=== PATIENT | female | born 1955 | race African-American/Black ===

== ENCOUNTER 2018-04-22 09:31 | Emergency (ER) | payer MEDICARE, MEDICAID ==
[~2018-04-22] VITALS: Ht 165.1 cm; Wt 100.0 kg
[~2018-04-22 09:31] MED LIST: ALBU18HF2; UNK MEDS
[2018-04-22 21:47] LABS: EOSINOPHILS % 2.6 % (0.0-5.0); HEMATOCRIT. 39.8 % (36.0-48.0); HEMOGLOBIN. 12.9 g/dL (12.0-16.0); MEAN CORPUSCULAR HEMOGLOBIN 27.4 pg (28.0-32.0); MEAN CORPUSCULAR VOLUME 84.6 fL (81.0-99.0); MEAN PLATELET VOLUME 8.9 fl (7.4-10.4); MONOCYTES % 8.8 % (2.0-8.0); NEUTROPHILS % 45.6 % (40.0-76.0); PLATELET 245 x1000/uL (130-400); RED CELL DISTRIBUTION WIDTH 14.9 % (11.6-14.6)
[2018-04-22 22:07] LABS: CLARITY URINE CLEAR (CLEAR); COLOR URINE YELLOW (YELLOW); KETONES URINE TRACE (NEGATIVE); LEUKOCYTE ESTERASE URINE NEGATIVE (NEGATIVE); NITRITE URINE NEGATIVE (NEGATIVE); OCCULT BLOOD URINE TRACE (NEGATIVE); PH URINE 5.5 (4.5-8.0); PROTEIN URINE TRACE (NEGATIVE); SPECIFIC GRAVITY URINE 1.028 (1.005-1.030)
[2018-04-22 23:44] LABS: CHLORIDE 108 mEq/L (98-107)
[2018-04-23] MEDS ORDERED: CEFTRIAXONE 1 G PREMIX 50 ML IV SCH (00:44)
[2018-04-23] MEDS ORDERED: KETOROLAC 30MG/ML VIAL IV SCH (00:45)
[2018-04-23 02:03] VITALS: BP 125/62
== END 2018-04-23 02:18 | disposition home or self-care (01) ==
LOC: ER 10:34
DX: N20.0 Calculus of kidney (principal); K80.20 Calculus of gallbladder without cholecystitis without obstruction; I11.0 Hypertensive heart disease with heart failure; I50.9 Heart failure, unspecified; Z86.73 Personal history of transient ischemic attack (TIA), and cerebral infarction without residual deficits; Z98.51 Tubal ligation status; Z96.659 Presence of unspecified artificial knee joint; Z98.890 Other specified postprocedural states; Z88.5 Allergy status to narcotic agent
CPT/HCPCS: 36415; 71045; 74176; 76705; 80053; 81003; 83605; 83690; 83880; 84484; 85025; 93005; 96365; 96375; 99284; J0696; J1885

== ENCOUNTER 2020-12-20 16:27 | Emergency (ER) | payer MEDICARE, MEDICAID ==
[~2020-12-20] VITALS: Ht 157.5 cm; Wt 98.0 kg
[2020-12-20 21:36] LABS: BASOPHILS % 1.1 % (0.0-2.0); CHLORIDE 110 mEq/L (98-107); EOSINOPHILS % 5.1 % (0.0-5.0); HEMATOCRIT. 37.6 % (36.0-48.0); HEMOGLOBIN. 12.4 g/dL (12.0-16.0); LYMPHOCYTES % 52.8 % (20.0-50.0); MEAN CORPUSCULAR HEMOGLOBIN 27.8 pg (28.0-32.0); MEAN CORPUSCULAR VOLUME 84.6 fL (81.0-99.0); MEAN PLATELET VOLUME 8.4 fl (7.4-10.4); MONOCYTES % 7.9 % (2.0-8.0); NEUTROPHILS % 33.1 % (40.0-76.0); PLATELET 259 x1000/uL (130-400); RED BLOOD CELL COUNT 4.45 mill/uL (4.2-5.4); RED CELL DISTRIBUTION WIDTH 14.3 % (11.6-14.6)
[2020-12-20 21:39] LABS: PROTHROMBIN TIME 11.1 sec (9.6-11.0)
[2020-12-20 22:23] VITALS: BP 174/75
== END 2020-12-20 22:33 | disposition home or self-care (01) ==
LOC: ER 16:27
DX: K92.1 Melena (principal); I11.0 Hypertensive heart disease with heart failure; I50.9 Heart failure, unspecified; Z86.73 Personal history of transient ischemic attack (TIA), and cerebral infarction without residual deficits
CPT/HCPCS: 36415; 80053; 85025; 86850; 86900; 99283

== ENCOUNTER 2022-09-15 19:20 | Emergency (ER) | payer MEDICARE, MEDICAID ==
[~2022-09-15] VITALS: Ht 165.1 cm; Wt 78.0 kg
[2022-09-15 20:45] VITALS: BP 155/74; PULSE 78; RESP 16; TEMP 98.6; O2SAT 96
[2022-09-15] MEDS ORDERED: IBUPROFEN 400MG TABLET PO ONE (22:00)
[2022-09-15] MEDS ORDERED: IBUP-2028 MT (22:37)
== END 2022-09-15 23:12 | disposition home or self-care (01) ==
LOC: ER 22:48
DX: S42.201A Unspecified fracture of upper end of right humerus, initial encounter for closed fracture (principal); M25.511 Pain in right shoulder; M25.531 Pain in right wrist; I11.0 Hypertensive heart disease with heart failure; I50.9 Heart failure, unspecified; Z86.73 Personal history of transient ischemic attack (TIA), and cerebral infarction without residual deficits; W18.39XA Other fall on same level, initial encounter; Y93.89 Activity, other specified; Y92.89 Other specified places as the place of occurrence of the external cause; Y99.8 Other external cause status
CPT/HCPCS: 73030; 73060; 73110; 99284